=== PATIENT | female | born 1950 | race Caucasian/White ===

== ENCOUNTER → 2019-01-14 14:42 | Outpatient (CLI) | payer MEDICARE, OTHER, SELFPAY ==
--- NOTE | 2019-01-14 14:45 | BI_ITS ---
MAMMOGRAPHY - BILATERAL SCREENING REASON FOR EXAM: Female, 68 years old. Routine annual screening examination. PERTINENT HISTORY: Mother with breast cancer. TECHNIQUE: Digital bilateral breast sahil (3D mammographic acquisition) in the CC and MLO projections. 2-D mediolateral oblique (MLO) and craniocaudad (CC) views of both breasts were obtained. CAD: Full Field Digital Mammography with Computer Added Detection was performed. COMPARISON: Comparison is made with prior study dated November 19, 2017 and November 04, 2016. FINDINGS: Breast Composition: The breasts are almost entirely fatty. There are no dominant masses or suspicious calcifications. No other significant abnormalities are identified. There has been no significant change since the prior study. BI/SCREENING MAMM (CAD), BILAT IMPRESSION: Stable bilateral screening mammogram. Yearly follow-up mammogram recommended. (A) ASSESSMENT CATEGORY: BIRADS Category 1: Negative. A letter regarding these results will be sent to the patient by the facility within 30 days. Approximately 10% of breast cancers are not detected by mammography. A normal mammogram should not delay biopsy of a clinically suspicious abnormality. [id number] Electronically Signed: Timothy Nguyen MD at 8:47 EST , Service support ,
== END ==
PROVIDERS: Family Provider Family Medicine; PCP Family Medicine; Referring Provider Family Medicine; Visit Provider Family Medicine
DX: Z12.31 Encounter for screening mammogram for malignant neoplasm of breast (principal)
CPT/HCPCS: 77063; 77067

== ENCOUNTER → 2020-05-01 10:15 | Outpatient (CLI) | payer MEDICARE, OTHER, SELFPAY ==
[2020-05-01 12:40] LABS: Anion Gap 6 (5-15); BUN 18 mg/dL (7-18); BUN/Creat Ratio 17.5 RATIO (10-20); Calcium,Total 9.1 mg/dL (8.5-10.1); Chloride 107 mmol/L (98-107); Cholesterol 255 mg/dL (200); Creatinine, Serum 1.03 mg/dL (0.55-1.02); EST Glomerular Filtration Rate 56 mL/min (>60); Est Glom Filt Rate - Afr Amer 68 mL/min (>60); Glucose 90 mg/dL (74-106); High Density Lipoprotein 60 mg/dL; Potassium 3.8 mmol/L (3.5-5.1); Sodium Level 141 mmol/L (136-145); Triglycerides 140 mg/dL; Very Low Density Lipoprotein 28 mg/dL (5-40)
[2020-05-01 12:43] LABS: Vitamin D,25 Hydroxy 51.8 ng/mL
== END ==
PROVIDERS: PCP Family Medicine; Referring Provider Family Medicine; Visit Provider Family Medicine
DX: Z00.00 Encounter for general adult medical examination without abnormal findings (principal); I10 Essential (primary) hypertension; N95.9 Unspecified menopausal and perimenopausal disorder
CPT/HCPCS: 36415; 80048; 80061; 82306

== ENCOUNTER → 2020-05-29 13:05 | Outpatient (CLI) | payer MEDICARE, OTHER, SELFPAY ==
--- NOTE | 2020-05-29 13:08 | BI_ITS ---
MAMMOGRAPHY - BILATERAL SCREENING REASON FOR EXAM: Female, 69 years old. Routine annual screening examination. PERTINENT HISTORY: Mother with breast cancer. TECHNIQUE: Digital bilateral breast john (3D mammographic acquisition) in the CC and MLO projections. 2-D mediolateral oblique (MLO) and craniocaudad (CC) views of both breasts were obtained. CAD: Full Field Digital Mammography with Computer Added Detection was performed. COMPARISON: Comparison is made with prior study dated January 14, 2019 and November 19, 2017. FINDINGS: Breast Composition: The breasts are almost entirely fatty. There are no dominant masses or suspicious calcifications. Stable small benign appearing bilateral axillary lymph nodes. No other significant abnormalities are identified. There has been no significant change since the prior study. BI/SCREEN MAMM (CAD) W/JOHN BILAT IMPRESSION: Stable bilateral screening mammogram. Yearly follow-up mammogram recommended. (A) ASSESSMENT CATEGORY: BIRADS Category 2: Benign. A letter regarding these results will be sent to the patient by the facility within 30 days. Approximately 10% of breast cancers are not detected by mammography. A normal mammogram should not delay biopsy of a clinically suspicious abnormality. [id number] Electronically Signed: Timothy Nguyen, at 15:06 EDT , Service support ,
--- NOTE | 2020-05-29 13:30 | BD_ITS ---
STUDY: DUAL ENERGY X-RAY ABSORPTIOMETRY / DXA REASON FOR EXAM: Female, 69 years old. 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 COMPARISON: Comparison is made with prior examination November 11, 2017. FINDINGS: Lumbar Spine (L1-L4): g/cm2 (1.106) / T-score (-0.6) / Z-score (1.0) Findings are suggestive of normal bone density with a low fracture risk. Left Femur Total: g/cm2 (0.858) / T-score (-1.2) / Z-score (0.2) Left Femoral Neck: g/cm2 (0.766) / T-score (-2.0) / Z-score (-0.3) Right Femur Total: g/cm2 (0.857) / T-score (-1.2) / Z-score (0.2) Right Femoral Neck: g/cm2 (0.790) / T-score (-1.8) / Z-score (-0.1) The T-Scores on the most recent prior examination were: Lumbar Spine (L1-L4): There has been improvement of bone density since the previous examination. Left Femur Total: which represents an improvement of 1.5%. Right Femur Total: which represents a worsening of 2.7%. BD/DXA BONE DENS W/VERT FX ASMT IMPRESSION: The patient is considered osteopenic as outlined below according to World Neto Organization (WHO) criteria with a moderate fracture risk. There has been improvement of bone density since the previous examination. Reference Information: The T-score is the number of standard deviations above or below the standard which is normal for young adults at their peak bone mineral density. The World Health Organization (WHO) interprets the T-scores as follows: Above -1 Normal bone density Between -1 and -2.5 Osteopenia Equal to / or below -2.5 Osteoporosis As a practical clinical guideline, osteopenia may be graded as follows: Mild -1 through -1.5 Moderate -1.6 through -2.0 Severe -2.1 through -2.4 The Z-score is the number of standard deviations above or below age-matched controls. A Z-score of less than -1.5 would be considered abnormal. References: 1. NIH Osteoporosis and Related Bone Diseases http://www.osteo.org 2. International Society for Clinical Densitometry http://www.iscd.org 3. National Osteoporosis Foundation http://www.nof.org Electronically Signed: Timothy Nguyen, at 13:50 EDT , Service support ,
== END ==
PROVIDERS: PCP Family Medicine; Referring Provider Family Medicine; Visit Provider Family Medicine
DX: Z12.31 Encounter for screening mammogram for malignant neoplasm of breast (principal); N95.9 Unspecified menopausal and perimenopausal disorder
CPT/HCPCS: 77063; 77067; 77080; 77085

== ENCOUNTER → 2020-06-29 08:16 | Outpatient (CLI) | payer MEDICARE, OTHER, SELFPAY ==
[2020-06-29 10:12] LABS: AST(SGOT) 26 U/L (15-37); Alanine Aminotransfer ALT/SGPT 23 U/L (13-56); Cholesterol 114 mg/dL (200); High Density Lipoprotein 59 mg/dL; Triglycerides 72 mg/dL; Very Low Density Lipoprotein 14 mg/dL (5-40)
== END ==
PROVIDERS: PCP Family Medicine; Referring Provider Family Medicine; Visit Provider Family Medicine
DX: E78.5 Hyperlipidemia, unspecified (principal)
CPT/HCPCS: 36415; 80061; 84450; 84460

== ENCOUNTER → 2021-05-03 11:15 | Outpatient (CLI) | payer MEDICARE, OTHER, SELFPAY ==
[2021-05-03 13:08] LABS: AST(SGOT) 24 U/L (15-37); Alanine Aminotransfer ALT/SGPT 28 U/L (13-56); Cholesterol 135 mg/dL (200); High Density Lipoprotein 59 mg/dL; Thyroid Stim Hormone (TSH) 1.89 uIU/mL (0.358-3.74); Triglycerides 72 mg/dL; Very Low Density Lipoprotein 14 mg/dL (5-40)
== END ==
PROVIDERS: PCP Family Medicine; Referring Provider Family Medicine; Visit Provider Family Medicine
DX: E78.5 Hyperlipidemia, unspecified (principal)
CPT/HCPCS: 36415; 80061; 84443; 84450; 84460

== ENCOUNTER → 2021-06-04 08:29 | Outpatient (CLI) | payer MEDICARE, OTHER, SELFPAY ==
--- NOTE | 2021-06-04 08:32 | BI_ITS ---
MAMMOGRAPHY - BILATERAL SCREENING REASON FOR EXAM: Female, 70 years old. Routine annual screening examination. PERTINENT HISTORY: Mother with breast cancer. TECHNIQUE: Digital bilateral breast john (3D mammographic acquisition) in the CC and MLO projections. 2-D mediolateral oblique (MLO) and craniocaudad (CC) views of both breasts were obtained. CAD: Full Field Digital Mammography with Computer Added Detection was performed. COMPARISON: Comparison is made with prior study dated 05/29/2020 and 01/14/2019. FINDINGS: Breast Composition: The breasts are almost entirely fatty. There are no dominant masses or suspicious calcifications. Stable small benign-appearing bilateral axillary lymph nodes. No other significant abnormalities are identified. There has been no significant change since the prior study. BI/SCRN MAMM (CAD)W/JOHN BILAT IMPRESSION: Stable bilateral screening mammogram. Yearly follow-up mammogram recommended. (A) ASSESSMENT CATEGORY: BIRADS Category 2: Benign. A letter regarding these results will be sent to the patient by the facility within 30 days. Approximately 10% of breast cancers are not detected by mammography. A normal mammogram should not delay biopsy of a clinically suspicious abnormality. [id number] Electronically Signed: Timothy Nguyen MD at 9:57 EDT , Service support ,
== END ==
PROVIDERS: PCP Family Medicine; Referring Provider Family Medicine; Visit Provider Family Medicine
DX: Z12.31 Encounter for screening mammogram for malignant neoplasm of breast (principal); Z80.3 Family history of malignant neoplasm of breast
CPT/HCPCS: 77063; 77067

== ENCOUNTER → 2022-06-03 | Outpatient (CLI) | payer MEDICARE, OTHER, SELFPAY ==
[2022-06-03 16:05] LABS: AST(SGOT) 35 U/L (15-37); Alanine Aminotransfer ALT/SGPT 28 U/L (13-56); Cholesterol 134 mg/dL (200); High Density Lipoprotein 60 mg/dL; Triglycerides 74 mg/dL; Very Low Density Lipoprotein 15 mg/dL (5-40)
== END | disposition home or self-care (01) ==
LOC: MFPLAB 11:24
PROVIDERS: PCP Family Medicine; Referring Provider Family Medicine; Visit Provider Family Medicine
DX: E78.5 Hyperlipidemia, unspecified (principal)
CPT/HCPCS: 36415; 80061; 84450; 84460

== ENCOUNTER → 2022-06-06 | Outpatient (CLI) | payer MEDICARE, OTHER, SELFPAY ==
--- NOTE | 2022-06-06 10:56 | BI_ITS ---
MAMMOGRAPHY - BILATERAL SCREENING REASON FOR EXAM: Female, 71 years old. Routine annual screening examination. PERTINENT HISTORY: Mother with breast cancer. TECHNIQUE: Digital bilateral breast john (3D mammographic acquisition) in the CC and MLO projections. 2-D mediolateral oblique (MLO) and craniocaudad (CC) views of both breasts were obtained. CAD: Full Field Digital Mammography with Computer Added Detection was performed. COMPARISON: Comparison is made with prior study dated 06/04/2021 and 05/29/2020. FINDINGS: Breast Composition: The breasts are almost entirely fatty. There are no dominant masses or suspicious calcifications. Stable small benign-appearing bilateral axillary No other significant abnormalities are identified. There has been no significant change since the prior study. BI/SCRN MAMM (CAD)W/JOHN BILAT IMPRESSION: Stable bilateral screening mammogram. Yearly follow-up mammogram recommended. (A) ASSESSMENT CATEGORY: BIRADS Category 2: Benign. A letter regarding these results will be sent to the patient by the facility within 30 days. Approximately 10% of breast cancers are not detected by mammography. A normal mammogram should not delay biopsy of a clinically suspicious abnormality. [id number] Electronically Signed: Timothy Nguyen MD at 11:57 EDT ,
== END | disposition home or self-care (01) ==
PROVIDERS: PCP Family Medicine; Referring Provider Family Medicine; Visit Provider Family Medicine
DX: Z12.31 Encounter for screening mammogram for malignant neoplasm of breast (principal); Z80.3 Family history of malignant neoplasm of breast
CPT/HCPCS: 77063; 77067

== ENCOUNTER → 2023-06-11 | Outpatient (CLI) | payer MEDICARE, OTHER, SELFPAY ==
--- NOTE | 2023-06-11 08:00 | BI_ITS ---
MAMMOGRAPHY - BILATERAL SCREENING 3-D TOMOSYNTHESIS REASON FOR EXAM: Female, 72 years old. Routine screening PERTINENT HISTORY: Mother with breast cancer.. TECHNIQUE: 2-D mammograms and 3-D Tomosynthesis of the breast (s) were performed. CAD was performed. COMPARISON: 06/04/2021 FINDINGS: The breast composition is almost entirely fat. Scattered benign calcifications are seen. No dense spiculated masses or suspicious microcalcifications are identified. No architectural distortion is identified. There is no skin thickening or retraction. There has been no significant change since the prior study. BI/SCRN MAMM (CAD)W/JOHN BILAT IMPRESSION: No mammographic signs of malignancy. Routine yearly mammograms recommended. ASSESSMENT CATEGORY: BIRADS Category 1: Negative. A letter regarding these results will be sent to the patient by the facility within 30 days. FOLLOW UP RECOMMENDATION: Yearly follow up mammogram recommended. (A) Approximately 10% of breast cancers are not detected by mammography. A normal mammogram should not delay biopsy of a clinically suspicious abnormality. Electronically Signed: Cristofer Gonzalez MD at 9:15 EDT ,
== END | disposition home or self-care (01) ==
LOC: OPBI 07:58
PROVIDERS: PCP Family Medicine; Referring Provider Family Medicine; Visit Provider Family Medicine
DX: Z12.31 Encounter for screening mammogram for malignant neoplasm of breast (principal); Z80.3 Family history of malignant neoplasm of breast
CPT/HCPCS: 77063; 77067

== ENCOUNTER → 2024-06-24 | Outpatient (CLI) | payer MEDICARE, OTHER, SELFPAY ==
--- NOTE | 2024-06-24 07:29 | BI_ITS ---
MAMMOGRAPHY - BILATERAL SCREENING REASON FOR EXAM: Female, 73 years old. Routine annual screening examination. PERTINENT HISTORY: Mother with breast cancer. TECHNIQUE: Digital bilateral breast john (3D mammographic acquisition) in the CC and MLO projections. 2-D mediolateral oblique (MLO) and craniocaudad (CC) views of both breasts were obtained. CAD: Full Field Digital Mammography with Computer Added Detection was performed. COMPARISON: Comparison is made with prior study June 11, 2023 and June 06, 2022. FINDINGS: Breast Composition: The breasts are almost entirely fatty. There are no dominant masses or suspicious calcifications. No other significant abnormalities are identified. There has been no significant change since the prior study. BI/SCRN MAMM (CAD)W/JOHN BILAT IMPRESSION: Stable bilateral screening mammogram. Yearly follow-up mammogram recommended. (A) ASSESSMENT CATEGORY: BIRADS Category 1: Negative. A letter regarding these results will be sent to the patient by the facility within 30 days. Approximately 10% of breast cancers are not detected by mammography. A normal mammogram should not delay biopsy of a clinically suspicious abnormality. [id number] Electronically Signed: Timothy Nguyen MD at 9:03 EDT ,
== END | disposition home or self-care (01) ==
LOC: OPBI 07:27
PROVIDERS: PCP Family Medicine; Referring Provider Family Medicine; Visit Provider Family Medicine
DX: Z12.31 Encounter for screening mammogram for malignant neoplasm of breast (principal); Z80.3 Family history of malignant neoplasm of breast
CPT/HCPCS: 77063; 77067

== ENCOUNTER → 2025-06-26 | Outpatient (CLI) | payer MEDICARE, OTHER, SELFPAY ==
--- OUTSIDE RECORDS SUMMARY | 2025-06-26 07:22 | XMS RPT_ITS | CCD ---
Author Organization [facility] Care Team Providers Care Sign Board Erector Name Role Phone Marcela Blas MD Unavailable [phone] Mariluz Coronado Primary Care Provider MARILUZ CORONADO Primary Care Unavailable MARILUZ CORONADO Primary Care Unavailable Mariluz Coronado Referring Unavailable Mariluz Coronado Attending Unavailable Mariluz Coronado Primary Care Unavailable Allergies Allergy Classification Reported Allergen(s) Allergy Type Date of Onset Reaction(s) Facility (2 sources) Erythromycin; Translations: [ERYTHROMYCIN] Drug Allergy 02-09-2007 [facility] Work Phone: Medications Current Medications Medication Drug Class(es) Dates Sig (Normalized) Sig (Original) cephalexin 500 mg oral capsule (1 source) Cephalosporin Antibacterial Start: 04-26-2023 End: 05-01-2023 take 1 capsule by mouth three times daily cephALEXin (KEFLEX) 500 mg capsule Take 1 capsule by mouth three times daily for 5 days. 15 capsule 0 04/26/2023 05/01/2023 Active Comment on above: Take 1 capsule by [facility] three times daily for 5 days. triamcinolone acetonide 1 mg/ml topical cream (1 source) Corticosteroid Start: 04-26-2023 End: 05-01-2023 triamcinolone acetonide (KENALOG) 0.1 % cream Apply 1 application to affected area twice daily for 5 days. Apply sparingly to area for rash/itching. 45 g 0 04/26/2023 05/01/2023 Active Comment on above: Apply 1 application to affected area twice daily for 5 days. Apply sparingly to area for rash/itching. Completed/Discontinued Medications Medication Drug Class(es) Dates Sig (Normalized) Sig (Original) calcium (1 source) Phosphate Binder, Calcium Start: 07-09-2018 CALCIUM 600 + D TABS 1 tablet twice daily CALCIUM CARB-CHOLECALCIFEROL TABS [id number] Zena Acevedo FACULTY RESEARCH ASSISTANT MULTIPLE VITAMINS-MINERALS (1 source) Start: 10-27-2017 MULTIVITAMIN ADULTS TABS 1 tablet daily MULTIPLE VITAMINS-MINERALS [id number] Zena Huitronro FACULTY RESEARCH ASSISTANT MULTIPLE VITAMINS-MINERALS (1 source) Start: 10-27-2017 OCUVITE EXTRA TABS 1 tablet daily MULTIPLE VITAMINS-MINERALS [id number] Zena Acevedo FACULTY RESEARCH ASSISTANT Problems Active Problems Problem Classification Problem Date Documented Da te Episodic/Chronic Melanomas of skin (1 source) Malignant melanoma of skin of cheek; Translations: [Malignant melanoma of other parts of face] Onset: 11-09-2017 11-09-2017 Chronic Other ear and sense organ disorders (1 source) Otorrhea of left ear; Translations: [Otorrhea, left ear] Episodic Other screening for suspected conditions (not mental disorders or infectious disease) (1 source) Encounter for screening mammogram for malignant neoplasm of breast; Translations: [Encounter for screening mammogram for malignant neoplasm of breast] Onset: 07-22-2024 Episodic Past or Other Problems Problem Classification Problem Date Documented Da te Episodic/Chronic Allergic reactions (1 source) Radiation-induced dermatosis; Translations: [Other skin changes due to chronic exposure to nonionizing radiation] Onset: 02-10-2007 02-10-2007 Episodic Other and unspecified benign neoplasm (1 source) Benign neoplasm of skin of upper limb; Translations: [Other benign neoplasm of skin of unspecified upper limb, including shoulder] Onset: 02-10-2007 02-10-2007 Episodic Other and unspecified benign neoplasm (1 source) Benign tumor of head and neck; Translations: [Other benign neoplasm of skin of scalp and neck] Onset: 02-10-2007 02-10-2007 Episodic Other and unspecified benign neoplasm (1 source) Benign neoplasm of skin of trunk; Translations: [Other benign neoplasm of skin of trunk] Onset: 02-10-2007 02-10-2007 Episodic Other injuries and conditions due to external causes (1 source) Open wound; Translations: [Other injury of unspecified body region, initial encounter] Onset: 05-11-2007 05-11-2007 Episodic Other skin disorders (1 source) Actinic keratosis; Translations: [Actinic keratosis] Onset: 02-10-2007 02-10-2007 Episodic Other skin disorders (1 source) Disorder of skin pigmentation; Translations: [Disorder of pigmentation, unspecified] Onset: 02-10-2007 02-10-2007 Episodic Other skin disorders (1 source) Disorder of pigmentation; Translations: [Disorder of pigmentation, unspecified] Onset: 03-23-2007 03-23-2007 Episodic Other skin disorders (1 source) Scar conditions and fibrosis of skin; Translations: [Scar conditions and fibrosis of skin] Onset: 09-10-2007 09-10-2007 Episodic Unclassified (1 source) Problem Results Test Name Value Interpretation Reference Range Facility SCRN MAMM (CAD)W/JOHN Thompson n 06-24-2024 SCRN MAMM (CAD)W/JOHN OROZCO [facility] Imaging Services [address] [place] [id number] SCRN MAMM (CAD)W/JOHN OROZCO MR#: [id number] Acct: [id number] Name: MARINE SANCHEZ AMAYA Rep #: [id number] : 1950 F 73 From: Timothy nuñez MD PCP: Dr. Mariluz Coronado MD Status: [facility] Study: SCRN MAMM (CAD)W/JOHN OROZCO Date of Exam: 01/16 Exam# [id number] Ordering Dr: Mariluz Coronado MD [id number] MAMMOGRAPHY - BILATERAL SCREENING REASON FOR EXAM: Female, 73 years old. Routine annual screening examination. PERTINENT HISTORY: Mother with breast cancer. TECHNIQUE: Digital bilateral breast john (3D mammographic acquisition) in the CC and MLO projections. 2-D mediolateral oblique (MLO) and craniocaudad (CC) views of both breasts were obtained. CAD: Full Field Digital Mammography with Computer Added Detection was performed. COMPARISON: Comparison is made with prior study June 11, 2023 and June 06, 2022. FINDINGS: Breast Composition: The breasts are almost entirely fatty. There are no dominant masses or suspicious calcifications. No other significant abnormalities are identified. There has been no significant change since the prior study. BI/SCRN MAMM (CAD)W/JOHN BILAT IMPRESSION: Stable bilateral screening mammogram. Yearly follow-up mammogram recommended. (A) ASSESSMENT CATEGORY: BIRADS Category 1: Negative. A letter regarding these results will be sent to the patient by the facility within 30 days. Approximately 10% of breast cancers are not detected by mammography. A normal mammogram should not delay biopsy of a clinically suspicious abnormality. [id number] Electronically Signed: Timothy Nguyen MD at 9:03 EDT , CC: Dr. Mariluz Coronado MD Technical Mgr: Signed [facility] 04-30-2023 [facility] Telephone (UCTR) LAURAMARINE ([id number]) 1950 F Date Time Provider Department 04/30/23 ZEE CARRENO [facility] During your visit today, we recorded the following information about you: Zee Carreno APRN.[facility] 04/30/2023 12:00 PM Signed Please let Marine know that her wound culture did not reveal bacterial growth. She can continue the ATB and ointment if symptoms are improving. Follow up with primary care doctor. Robyn Lemus LPN 04/30/2023 12:57 PM Signed Phone call placed brief message contact a nurse to review results. Robyn Sood MA 05/02/2023 10:23 AM Signed Letter sent to listed address after 3 attempts to reach patient by telephone with no success. MARILY Heck LPN 05/06/2023 1:12 PM Signed Patient returned call and notified of results. Allergies As of Date: 04/30/2023 Noted Allergy Reaction EMYCIN (ERYTHROMYCIN) 02/09/2007 Date Reviewed: 04/26/2023 Reviewed by: Patricia Altamirano APRN.ADMINISTRATIVE SERVICES SPECIALIST - Fully Assessed Reason for Visit: Results [95] Problem List As Of Date 04/30/2023 Noted Resolved ACTINIC KERATOSIS [L57.0] 02/10/2007 SOLAR LENGINES///DYSCHROMIA OTHER [L81.9] 02/10/2007 BENIGN FIDELIA SKIN ARM [D23.60] 02/10/2007 BENIGN FIDELIA SCALP/SKIN NECK [D23.4] 02/10/2007 BENIGN FIDELIA SKIN TRUNK [D23.5] 02/10/2007 CHR SOLAR SKIN DAMAGE NOS [L57.8] 02/10/2007 ABNORMAL PIGMENTATION///DYSCHR OMIA UNSPECIFIED *03/23/2007 OPEN WOUND SITE NOS [T14.8XXA] 05/11/2007 SCAR AND FIBROSIS OF SKIN [L90.5] 09/10/2007 Letter Text Encounter Status:Closed by CLIFFORD SOOD on 05/02/23 Normal [facility] Bacteria Wnd Culton 04-26-20 Bacteria identified Cx Nom (Wound) CULTURE, WOUND: No growth GRAM STAIN: No organisms seen No Polymorphonuclear Leukocytes Normal [facility] Comment on above: Performed By: #### [phone] #### [facility] CLIA [id number] [address] [place] [address] [place] CNOVon 04-26-2023 CNOV Office Visit (UCWSTR ) MARINE SANCHEZ ([id number]) 1950 F Date Time Provider Department 04/26/23 9:00 AM PATRICIA ALTAMIRANO [facility] During your visit today, we recorded the following information about you: Temperature Pulse Respiration Blood pressure 97.8 degrees 72/minute 16/minute 118/80 Weight 67.1 kg Patricia APRN. AdarshADMINISTRATIVE SERVICES SPECIALIST 04/26/2023 9:31 AM Signed Subjective HPI Nontoxic-appearing female presents urgent care chief complaint left ear swelling. Patient symptoms the last few days. Associated symptoms itching redness swelling and drainage. States ear slightly painful. Most prominent symptom today is itching. No OTC medications. States ear was more swollen yesterday and swelling has slightly went down. No known injuries. Does not know if she was bit by a bug. Has been camping. Denies any fever body aches chills productive cough chest pain shortness of breath pleuritic pain hemoptysis nausea vomiting abdominal pain change in bowel or bladder habits. Past medical history prescription medication use and allergies reviewed. .Patient presents with: Ear Problem: Left ear swollen, red, painful, itchy, drainage History reviewed. No pertinent past medical history. PAST SURGICAL HISTORY Procedure Laterality Date PAST SURGICAL HISTORY OF 2003 hyster ALLERGIES Emycin [Erythromycin] MEDICATIONS No prescriptions on file. FAMILY HISTORY Problem Relation Age of Onset Cancer Mother breast Cancer Father melanoma Social History Tobacco Use Smoking status: Never Smokeless tobacco: Never BP 118/80 Pulse 72 Temp 36.6 ?C (97.8 ?F) Resp 16 Wt 67.1 kg (148 lb) SpO2 98% Review of Systems Constitutional: Negative for chills, fever and malaise/fatigue. HENT: Positive for ear discharge. Negative for congestion, ear pain, sinus pain and sore throat. Eyes: Negative for blurred vision, pain, discharge and redness. Respiratory: Negative for cough, hemoptysis, sputum production, shortness of breath, wheezing and stridor. Cardiovascular: Negative for chest pain. Gastrointestinal: Negative for abdominal pain, diarrhea, nausea and vomiting. Musculoskeletal: Negative for myalgias. Skin: Positive for itching. Negative for rash. Neurological: Negative for dizziness and headaches. Objective Physical Exam Constitutional: General: She is not in acute distress. Appearance: She is not diaphoretic. HENT: Head: Normocephalic. Ears: Comments: Edema erythema noted with some honey crusted drainage. No mastoid tenderness. No erythema edema noted to auditory canal. TMs pearly aj and intact bilaterally. No pre or posterior clear nodes noted. No cervical nodes noted. Mouth/Throat: Mouth: Mucous membranes are moist. Pharynx: Oropharynx is clear. No oropharyngeal exudate or posterior oropharyngeal erythema. Eyes: Conjunctiva/sclera: Conjunctivae normal. Pupils: Pupils are equal, round, and reactive to light. Cardiovascular: Rate and Rhythm: Normal rate and regular rhythm. Heart sounds: Normal heart sounds. Pulmonary: Effort: Pulmonary effort is normal. No tachypnea, accessory muscle usage or respiratory distress. Breath sounds: Normal breath sounds. No stridor. No wheezing, rhonchi or rales. Musculoskeletal: Cervical back: Normal range of motion and neck supple. No rigidity or tenderness. Lymphadenopathy: Cervical: No cervical adenopathy. Skin: General: Skin is warm and dry. Neurological: Mental Status: She is alert and oriented to person, place, and time. ASSESSMENT/PLAN: 1. Ear drainage, left - ICD9: 388.60, ICD10: H92.12 - ABSCESS AND WOUND CULTURE WITH GRAM STAIN Dermatitis versus bacterial infection. Low suspicion for perichondritis at this point. Will use triamcinolone cream as instructed. Do not use on face or and auditory canal. Will be placed on Keflex. Red flags prompt reevaluation discussed. Follow-up with PCP tomorrow for reevaluation. Patient was educated on supportive therapies. Patient will follow up with primary care provider as needed. Patient was instructed to immediately proceed to emergency room for any new, worsening, or symptoms lasting longer than anticipated. The patient's clinical presentation is otherwise unremarkable at this time. Based on exam and clinical finding, the patient is stable for discharge. Plan of care was discussed with patient. Patient verbalizes understanding and agrees to plan of care. This note was generated using [employer] software. It may contain errors in wording, punctuation, or spelling. Patricia Altamirano APRN.ADMINISTRATIVE SERVICES SPECIALIST Referring Provider: SELF [200] Allergies As of Date: 04/26/2023 Noted Allergy Reaction EMYCIN (ERYTHROMYCIN) 02/09/2007 Date Reviewed: 04/26/2023 Reviewed by: Patricia Altamirano APRN.CNP - Fully Assessed Reason for Visit: Ear Problem [38] Cmt: Left ear swollen, red, painful, itchy, (more content not included)... Normal [facility] CNOVon 04-12-2023 CNOV Office Visit (UCWSTR ) MARINE SANCHEZ ([id number]) 1950 F Date Time Provider Department 04/12/23 12:45 PM ADEOLA JO WSJEFFERSON During your visit today, we recorded the following information about you: Temperature Pulse Respiration Blood pressure 97.3 degrees 76/minute 16/minute 122/72 Weight 69.4 kg Adeola Jo APRN.CNP 04/12/2023 2:26 PM Signed CC: Patient presents with: Insect Bite: tick on top of head x 04/08, still there HPI Marine Sanchez is a 72 year old female who presents today for above. First noticed a bump on the top of her head on 04/08. She had a friend look at it yesterday who thought it was likely a tick. Patient put clear nail tuvaluan on it and it is still there today. [place] and has dogs. Denies rash, malaise, fatigue, joint pain, fever, chills. REVIEW OF SYSTEMS See HPI No past medical history on file. PAST SURGICAL HISTORY Procedure Laterality Date PAST SURGICAL HISTORY OF 2003 hyster ALLERGIES Emycin [Erythromycin] MEDICATIONS No prescriptions on file. FAMILY HISTORY Problem Relation Age of Onset Cancer Mother breast Cancer Father melanoma Social History Tobacco Use Smoking status: Never PHYSICAL EXAM BP 122/72 Pulse 76 Temp 36.3 ?C (97.3 ?F) Resp 16 Wt 69.4 kg (153 lb) SpO2 100% General Appearance: well appearing, in no acute distress, alert Skin- tick removed easily from scalp/top of head. No rashes, swelling, redness, or drainage. ASSESSMENT/PLAN: 1. Tick bite of scalp, initial encounter - ICD9: 910.4, E906.4, ICD10: S00.06XA, W57.XXXA Uncertain how long the tick was attached. Will treat with prophylactic Doxycycline. Given handout on Lyme disease and symptoms to watch out for Prescription instructions reviewed with patient as applicable. Potential red flag symptoms discussed with the patient. Reviewed appropriate action plan to take if red flag symptoms occur. Patient agreeable to treatment plan. Adeola Jo, ALVINO.ADMINISTRATIVE SERVICES SPECIALIST Allergies As of Date: 04/12/2023 Noted Allergy Reaction EMYCIN (ERYTHROMYCIN) 02/09/2007 Date Reviewed: 04/12/2023 Reviewed by: Alejandra Courtney - Fully Assessed Reason for Visit: Insect Bite [929] Cmt: tick on top of head x 04/08, still there Primary Visit Diagnosis:Tick bite of scalp, initial encounter [S00.06XA, W57.XXXA] Order(s):doxycycline (VIBRA-TABS) 100 mg tabletTake 2 tablets by mouth one time only for 1 dose.Disp: 2 tabletRfl: 0 Prescriptions as of 04/12/2023 - doxycycline (VIBRA-TABS) 100 mg tablet Take 2 tablets by mouth one time only for 1 dose. Problem List As Of Date 04/12/2023 Noted Resolved ACTINIC KERATOSIS [L57.0] 02/10/2007 SOLAR LENGINES///DYSCHROMIA OTHER [L81.9] 02/10/2007 BENIGN FIDELIA SKIN ARM [D23.60] 02/10/2007 BENIGN FIDELIA SCALP/SKIN NECK [D23.4] 02/10/2007 BENIGN FIDELIA SKIN TRUNK [D23.5] 02/10/2007 CHR SOLAR SKIN DAMAGE NOS [L57.8] 02/10/2007 ABNORMAL PIGMENTATION///DYSCHR OMIA UNSPECIFIED *03/23/2007 OPEN WOUND SITE NOS [T14.8XXA] 05/11/2007 SCAR AND FIBROSIS OF SKIN [L90.5] 09/10/2007 Prescriptions ordered this encounter Disp Refills Start End DOXYCYCLINE HYCLATE 100 MG TABLET 2 ta* 0 04/12/2023 04/12/2023 Route: ORAL Sig: Take 2 tablets by mouth one time only for 1 dose. Encounter Status:Closed by OLDER, ADEOLA on 04/12/23 Normal [facility] Basophil percentageon 2021 Cholesterol [Mass/Vol] 134 mg/dL <200 [facility] Work Phone: Comment on above: <200 mg/dL Desirable 200-240 mg/dL Borderline >240 mg/dL High Risk Triglyceride [Mass/Vol] 74 mg/dL <199 [facility] Work Phone: Comment on above: The drugs N-Acetylcy steine and Metamizole may falsely depress this assay.Serum Triglycerides Reference Interval Normal <150 mg/dL Borderline high 150 - 199 mg/dL High 200 - 499 mg/dL Very High > or = 500 mg/dL Laboratory - Chemistry and C hemistry - challengeon 06-03-2022 ALT [Catalytic activity/Vol] 28 U/L 13-56 [facility] Work Phone: Serum or plasma cholesterol in HDL measurement (mass/volume)on 06-03-2022 Cholesterol in HDL [Mass/Vol] 60 mg/dL >40 [facility] Work Phone: Comment on above: The drugs N-Acetylcy steine and Metamizole may falsely depress this assay. Reference Range HDL <40 mg/dL Low HDL Cholesterol HDL >or= 60 mg/dL High HDL Cholesterol Serum or plasma cholesterol in VLDL measurement (mass/volume)on 06-03-2022 Cholesterol in VLDL [Mass/Vol] 15 mg/dL 5-40 [facility] Work Phone: Serum or plasma low density lipoprotein (LDL) cholesterol measurement (mass/volume)on 06-03-2022 Cholesterol in LDL [Mass/Vol] 59 mg/dL 0-130 [facility] Work Phone: Thin prep Papanicolaou smear with manual screeningon 06-03-2022 Thin prep Papanicolaou smear with manual screening 35 U/L 15-37 [facility] Work Phone: XR FINGER 4TH DIGIT 3 VIEWS RIGHTon 04-29-2021 XR FINGER 4TH DIGIT 3 VIEWS RIGHT ORIGINAL XR FINGER 4TH DIGIT 3 VIEWS RIGHT CLINICAL STATEMENT: pain. COMPARISON: None FINDINGS: No acute fracture or dislocation is identified. The joint spaces are maintained. Soft tissue swelling of the distal 4th finger. There is no radiopaque foreign body. IMPRESSION: No acute fracture or dislocation. I have personally reviewed the images of this examination and agree with the resident's findings and interpretation. Interpreted By: Eliecer Beckman DO Preliminary Report By: Willie Madrigal MD Electronically Signed By: Eliecer Beckman DO Dictated Date: 04/28/2021 9:55:29 PM Prelim Date: 04/28/2021 9:56:34 PM Sign Date: 04/28/2021 10:09:42 PM Ordering Provider:Eliezer Baeza [facility] (MD) Clinical Summary: HMSPatient IDon 07-12-2018 POP Invalid Interpretation Code [facility] Work [facility]: Office Visit: Postop - subse quent visit, Rm: 1on 07-12-2018 NEGATED: Highlighted rowProtein mass conc Done Invalid Interpretation Code [facility] Work Phone: Vital Signs Date Time Vital Sign Value Performing Clinician Facility 04-26-2023 09:01-0400 Body temperature 97.81 [degF] Patricia Altamirano APRN.ADMINISTRATIVE SERVICES SPECIALIST Work Phone: [facility] 04-26-2023 09:01-0400 Body weight 67.13 kg Patricia Altamirano APRN.ADMINISTRATIVE SERVICES SPECIALIST Work Phone: [facility] 04-26-2023 09:01-0400 Diastolic blood pressure 80 mm[Hg] Patricia Altamirano BYPRODUCTS OPERATOR.ADMINISTRATIVE SERVICES SPECIALIST Work Phone: [facility] 04-26-2023 09:01-0400 Heart rate 72 /min Patricia Altamirano BYPRODUCTS OPERATOR.ADMINISTRATIVE SERVICES SPECIALIST Work Phone: [facility] 04-26-2023 09:01-0400 Respiratory rate 16 /min Patricia Altamirano APRN.ADMINISTRATIVE SERVICES SPECIALIST Work Phone: [facility] 04-26-2023 09:01-0400 SaO2% (BldA) [Mass fraction] 98 % Patricia Altamirano BYPRODUCTS OPERATOR.ADMINISTRATIVE SERVICES SPECIALIST Work Phone: [facility] 04-26-2023 09:01-0400 Systolic blood pressure 118 mm[Hg] Patricia Bellkelly BYPRODUCTS OPERATOR.ADMINISTRATIVE SERVICES SPECIALIST Work Phone: [facility] NEGATED: Highlighted [id number] 10:13-0400 BMI (Body Mass Index) 30.32 kg/m2 Emilia Serrilli FACULTY RESEARCH ASSISTANT [facility] Work Phone: NEGATED: Highlighted [id number] 10:13-0400 BP Diastolic 88 mm[Hg] Emilia Serrilli FACULTY RESEARCH ASSISTANT [facility] Work Phone: NEGATED: Highlighted [id number] 10:13-0400 BP Diastolic 0 mm[Hg] Emilia Serrilli FACULTY RESEARCH ASSISTANT [facility] Work Phone: NEGATED: Highlighted [id number] 10:13-0400 BP Systolic 153 mm[Hg] Emilia Serrilli FACULTY RESEARCH ASSISTANT [facility] Work Phone: NEGATED: Highlighted [id number] 10:13-0400 BP Systolic 0 mm[Hg] Emilia Serrilli FACULTY RESEARCH ASSISTANT [facility] Work Phone: NEGATED: Highlighted [id number] 10:13-0400 Height 162.56 cm Emilia Serrilli FACULTY RESEARCH ASSISTANT [facility] Work Phone: NEGATED: Highlighted [id number] 10:13-0400 Height 163 cm Emilia Serrilli FACULTY RESEARCH ASSISTANT [facility] Work Phone: NEGATED: Highlighted [id number] 10:13-0400 Pulse (Heart Rate) 65 /min Emilia Serrilli FACULTY RESEARCH ASSISTANT [facility] Work Phone: NEGATED: Highlighted [id number] 10:13-0400 Weight 79.83 kg Emilia Serrilli FACULTY RESEARCH ASSISTANT [facility] Work Phone: NEGATED: Highlighted [id number] 10:13-0400 Weight 80 kg Emilia Riley MIGUEL [facility] Work Phone: Encounters Encounter Date Encounter Type Care Provider Facility Start: 06-24-2024 End: 06-24-2024 ambulatory Mariluz Avitiaiff Facility:[facility] Start: 04-26-2023 End: 04-26-2023 [facility] Start: 04-26-2023 End: 04-26-2023 Office outpatient visit 25 minutes Patricia Altamirano APRN.ERICKA Work Phone: [facility] Comment on above: Ear drainage, left ( Primary Dx) Start: 04-12-2023 End: 04-12-2023 [facility] Start: 06-06-2022 Patient encounter procedure [facility]Outpatient [facility] Start: 06-03-2022 End: 06-03-2022 Patient encounter [facility] Start: 07-12-2018 End: 07-12-2018 Patient encounter procedure Marcela Blas MD Work Phone: [facility] Work Phone: Procedures Date Procedure Procedure Detail Performing Clinician Start: 06-06-2022 Screening mammography Start: 07-12-2018 End: 07-12-2018 BMI documented as above normal parameters - follow-up documented Marcela Blas MD Work Phone: Start: 07-12-2018 End: 07-12-2018 Current medications documented Marcela Blas MD Work Phone: Start: 07-12-2018 End: 07-12-2018 Pain assessment not documented - reason not given A Mo Blas MD Work Phone: Start: 07-12-2018 End: 07-12-2018 Tobacco non-user Marcela Junior Work Phone: Plan of Treatment Date Care Activity Detail Author Start: 11-23-2022 ADVANCE DIRECTIVE DISCUSSION ADVANCE DIRECTIVE DISCUSSION [facility] Start: 11-23-2022 DEPRESSION ASSESSMENT DEPRESSION ASS ESSMENT [facility] Start: 12-30-2021 COVID-19 VACCINE (4 - Booster for Moderna series) COVID-19 VACCINE (4 - Booster for Moderna series) [facility] Start: 07-12-2018 End: 07-12-2018 Appointment Appointment [facility] Work Phone: Start: 2015 BONE DENSITY BONE DENSITY [facility] Start: 2015 PNEUMOCOCCAL: 65+ (1 - PCV) PNEUMOCOCCAL: 65+ (1 - PCV) [facility] Start: 2000 SHINGRIX VACCINE (1 of 2) SHINGRIX VACCINE (1 of 2) [facility] Start: 1995 COLOGUARD (FIT-DNA) COLOGUARD (FIT-D NA) [facility] Start: 1995 Colonoscopy COLONOSCOPY [facility] Start: 1995 COLORECTAL CANCER SCREENING COLORECTAL CANCER SCREENING [facility] Start: [address] COLONOGRAPHY [facility] Start: 1995 DIABETES SCREEN DIABETES SCREEN [facility] Start: 1995 FECAL OCCULT BLOOD FECAL OCCULT BLOO D [facility] Start: 1995 LIPID SCREEN LIPID SCREEN [facility] Start: 1995 SIGMOIDOSCOPY SIGMOIDOSCOPY [facility] Start: 1990 Mammography MAMMOGRAM [facility] Start: 1969 Urine microalbumin profile DTAP,TDAP,TD (1 - Tdap) [facility] Start: 1968 HEPATITIS C SCREENING HEPATITIS C [facility] Bacteria identified in Wound by Culture ABSCESS AND WOUND CULTURE WITH GRAM STAIN Microbiology Routine Ear drainage, left Ordered: 04/26/2023 [facility] Work Phone: Comment on above: Ordered: 04/26/2023 Patient Education \cps-sql1\CPS_ PtEducati on\htn.pdf [facility] Work Phone: Immunizations Immunization Date Immunization Notes Care Provider Brittany harvey No information available. Emilia Riley LPN [facility] Work Phone: Payers Date Payer Category Payer Self-pay [id number] 2015 Private Health Insurance [id number] 2015 Private Health Insurance HUMANA HUMANA MEDICARE SUPPLEMENT [id number] 2015-Present [phone] [address] [address] [place] [address] Indemnity [id number] 2015 Medicare [id number] 2015 Medicare MEDICARE MEDICAR E A AND B [id number] 2015-Present [phone] [address] [address] [place] [address] Medicare [id number] Unknown [id number] Social History Date Type Detail Facility Start: 07-12-2018 End: 07-12-2018 Assertion Unknown if ever smoked [facility] Work Phone: Start: 1950 Sex Assigned At Female [facility] Work Phone: Start: 04-26-2023 [facility] Start: 04-26-2023 Tobacco use and exposure Smokeless tobacco non-user [facility] Start: 04-26-2023 Alcohol intake Not Asked Luiza junior [facility] Start: 1950 Sex Assigned At Not on file [facility] Progress note 04-26-2023 Note Date & Type Note Facility 04-26-2023 Note HNO ID: [id number] Author: Patricia Altamirano APRN.ADMINISTRATIVE SERVICES SPECIALIST Service: ? Author Type: Nurse Practitioner Type: Progress Notes Filed: 04/26/2023 9:31 AM Note Text: Subjective HPI Nontoxic-appearing female presents urgent care chief complaint left ear swelling. Patient symptoms the last few days. Associated symptoms itching redness swelling and drainage. States ear slightly painful. Most prominent symptom today is itching. No OTC medications. States ear was more swollen yesterday and swelling has slightly went down. No known injuries. Does not know if she was bit by a bug. Has been camping. Denies any fever body aches chills productive cough chest pain shortness of breath pleuritic pain hemoptysis nausea vomiting abdominal pain change in bowel or bladder habits. Past medical history prescription medication use and allergies reviewed. .Patient presents with: Ear Problem: Left ear swollen, red, painful, itchy, drainage History reviewed. No pertinent past medical history. PAST SURGICAL HISTORY Procedure Laterality Date PAST SURGICAL HISTORY OF 2003 hyster ALLERGIES Emycin [Erythromycin] MEDICATIONS No prescriptions on file. FAMILY HISTORY Problem Relation Age of Onset Cancer Mother breast Cancer Father melanoma Social History Tobacco Use Smoking status: Never Smokeless tobacco: Never BP 118/80 Pulse 72 Temp 36.6 ?C (97.8 ?F) Resp 16 Wt 67.1 kg (148 lb) SpO2 98% Review of Systems Constitutional: Negative for chills, fever and malaise/fatigue. HENT: Positive for ear discharge. Negative for congestion, ear pain, sinus pain and sore throat. Eyes: Negative for blurred vision, pain, discharge and redness. Respiratory: Negative for cough, hemoptysis, sputum production, shortness of breath, wheezing and stridor. Cardiovascular: Negative for chest pain. Gastrointestinal: Negative for abdominal pain, diarrhea, nausea and vomiting. Musculoskeletal: Negative for myalgias. Skin: Positive for itching. Negative for rash. Neurological: Negative for dizziness and headaches. Objective Physical Exam Constitutional: General: She is not in acute distress. Appearance: She is not diaphoretic. HENT: Head: Normocephalic. Ears: Comments: Edema erythema noted with some honey crusted drainage. No mastoid tenderness. No erythema edema noted to auditory canal. TMs pearly aj and intact bilaterally. No pre or posterior clear nodes noted. No cervical nodes noted. Mouth/Throat: Mouth: Mucous membranes are moist. Pharynx: Oropharynx is clear. No oropharyngeal exudate or posterior oropharyngeal erythema. Eyes: Conjunctiva/sclera: Conjunctivae normal. Pupils: Pupils are equal, round, and reactive to light. Cardiovascular: Rate and Rhythm: Normal rate and regular rhythm. Heart sounds: Normal heart sounds. Pulmonary: Effort: Pulmonary effort is normal. No tachypnea, accessory muscle usage or respiratory distress. Breath sounds: Normal breath sounds. No stridor. No wheezing, rhonchi or rales. Musculoskeletal: Cervical back: Normal range of motion and neck supple. No rigidity or tenderness. Lymphadenopathy: Cervical: No cervical adenopathy. Skin: General: Skin is warm and dry. Neurological: Mental Status: She is alert and oriented to person, place, and time. ASSESSMENT/PLAN: 1. Ear drainage, left - ICD9: 388.60, ICD10: H92.12 - ABSCESS AND WOUND CULTURE WITH GRAM STAIN Dermatitis versus bacterial infection. Low suspicion for perichondritis at this point. Will use triamcinolone cream as instructed. Do not use on face or and auditory canal. Will be placed on Keflex. Red flags prompt reevaluation discussed. Follow-up with PCP tomorrow for reevaluation. Patient was educated on supportive therapies. Patient will follow up with primary care provider as needed. Patient was instructed to immediately proceed to emergency room for any new, worsening, or symptoms lasting longer than anticipated. The patient's clinical presentation is otherwise unremarkable at this time. Based on exam and clinical finding, the patient is stable for discharge. Plan of care was discussed with patient. Patient verbalizes understanding and agrees to plan of care. This note was generated using [employer] software. It may contain errors in wording, punctuation, or spelling. Patricia Altamirano APRN.ERICKA [facility] History of Present illness Narrative 04-26-2023 Patricia Altamirano APRN.ERICKA - 04/26/2023 9:04 AM EDT Note Date & Type Note Facility 04-26-2023 History of Presen t illness Narrative Images from the original note were not included. Subjective HPI Nontoxic-appearing female presents urgent care chief complaint left ear swelling. Patient symptoms the last few days. Associated symptoms itching redness swelling and drainage. States ear slightly painful. Most prominent symptom today is itching. No OTC medications. States ear was more swollen yesterday and swelling has slightly went down. No known injuries. Does not know if she was bit by a bug. Has been camping. Denies any fever body aches chills productive cough chest pain shortness of breath pleuritic pain hemoptysis nausea vomiting abdominal pain change in bowel or bladder habits. Past medical history prescription medication use and allergies reviewed. .Patient presents with: Ear Problem: Left ear swollen, red, painful, itchy, drainage History reviewed. No pertinent past medical history. PAST SURGICAL HISTORY Procedure Laterality Date PAST SURGICAL HISTORY OF 2003 hyster ALLERGIES Emycin [Erythromycin] MEDICATIONS No prescriptions on file. FAMILY HISTORY Problem Relation Age of Onset Cancer Mother breast Cancer Father melanoma Social History Tobacco Use Smoking status: Never Smokeless tobacco: Never BP 118/80 Pulse 72 Temp 36.6 C (97.8 F) Resp 16 Wt 67.1 kg (148 lb) SpO2 98% Review of Systems Constitutional: Negative for chills, fever and malaise/fatigue. HENT: Positive for ear discharge. Negative for congestion, ear pain, sinus pain and sore throat. Eyes: Negative for blurred vision, pain, discharge and redness. Respiratory: Negative for cough, hemoptysis, sputum production, shortness of breath, wheezing and stridor. Cardiovascular: Negative for chest pain. Gastrointestinal: Negative for abdominal pain, diarrhea, nausea and vomiting. Musculoskeletal: Negative for myalgias. Skin: Positive for itching. Negative for rash. Neurological: Negative for dizziness and headaches. Objective Physical Exam Constitutional: General: She is not in acute distress. Appearance: She is not diaphoretic. HENT: Head: Normocephalic. Ears: Comments: Edema erythema noted with some honey crusted drainage. No mastoid tenderness. No erythema edema noted to auditory canal. TMs pearly aj and intact bilaterally. No pre or posterior clear nodes noted. No cervical nodes noted. Mouth/Throat: Mouth: Mucous membranes are moist. Pharynx: Oropharynx is clear. No oropharyngeal exudate or posterior oropharyngeal erythema. Eyes: Conjunctiva/sclera: Conjunctivae normal. Pupils: Pupils are equal, round, and reactive to light. Cardiovascular: Rate and Rhythm: Normal rate and regular rhythm. Heart sounds: Normal heart sounds. Pulmonary: Effort: Pulmonary effort is normal. No tachypnea, accessory muscle usage or respiratory distress. Breath sounds: Normal breath sounds. No stridor. No wheezing, rhonchi or rales. Musculoskeletal: Cervical back: Normal range of motion and neck supple. No rigidity or tenderness. Lymphadenopathy: Cervical: No cervical adenopathy. Skin: General: Skin is warm and dry. Neurological: Mental Status: She is alert and oriented to person, place, and time. ASSESSMENT/PLAN: 1. Ear drainage, left - ICD9: 388.60, ICD10: H92.12 - ABSCESS AND WOUND CULTURE WITH GRAM STAIN Dermatitis versus bacterial infection. Low suspicion for perichondritis at this point. Will use triamcinolone cream as instructed. Do not use on face or and auditory canal. Will be placed on Keflex. Red flags prompt reevaluation discussed. Follow-up with PCP tomorrow for reevaluation. Patient was educated on supportive therapies. Patient will follow up with primary care provider as needed. Patient was instructed to immediately proceed to emergency room for any new, worsening, or symptoms lasting longer than anticipated. The patient's clinical presentation is otherwise unremarkable at this time. Based on exam and clinical finding, the patient is stable for discharge. Plan of care was discussed with patient. Patient verbalizes understanding and agrees to plan of care. This note was generated using [employer] software. It may contain errors in wording, punctuation, or spelling. Patricia Altamirano APRN.ERICKA documented in this encounter [facility] Progress note 04-12-2023 Note Date & Type Note Facility 04-12-2023 Note HNO ID: [id number] Author: Adeola Jo APRN.CNP Service: ? Author Type: Nurse Practitioner Type: Progress Notes Filed: 04/12/2023 2:26 PM Note Text: CC: Patient presents with: Insect Bite: tick on top of head x 04/08, still there HPI Marine Sanchez is a 72 year old female who presents today for above. First noticed a bump on the top of her head on 04/08. She had a friend look at it yesterday who thought it was likely a tick. Patient put clear nail tuvaluan on it and it is still there today. [place] and has dogs. Denies rash, malaise, fatigue, joint pain, fever, chills. REVIEW OF SYSTEMS See HPI No past medical history on file. PAST SURGICAL HISTORY Procedure Laterality Date PAST SURGICAL HISTORY OF 2003 hyster ALLERGIES Emycin [Erythromycin] MEDICATIONS No prescriptions on file. FAMILY HISTORY Problem Relation Age of Onset Cancer Mother breast Cancer Father melanoma Social History Tobacco Use Smoking status: Never PHYSICAL EXAM BP 122/72 Pulse 76 Temp 36.3 ?C (97.3 ?F) Resp 16 Wt 69.4 kg (153 lb) SpO2 100% General Appearance: well appearing, in no acute distress, alert Skin- tick removed easily from scalp/top of head. No rashes, swelling, redness, or drainage. ASSESSMENT/PLAN: 1. Tick bite of scalp, initial encounter - ICD9: 910.4, E906.4, ICD10: S00.06XA, W57.XXXA Uncertain how long the tick was attached. Will treat with prophylactic Doxycycline. Given handout on Lyme disease and symptoms to watch out for Prescription instructions reviewed with patient as applicable. Potential red flag symptoms discussed with the patient. Reviewed appropriate action plan to take if red flag symptoms occur. Patient agreeable to treatment plan. Adeola Jo APRN.ADMINISTRATIVE SERVICES SPECIALIST [facility] Evaluation note Note Date & Type Note Facility Evaluation note No assessment information availa [facility] Work Phone: Evaluation note Note Date & Type Note Facility Evaluation note Diagnosis Ear drainage, left- Primary documented in this encounter [facility] Instructions Instruction Description Start Date CompletedPlease follow-up wi th Primary Care Physician or [facility] for treatment or adjustment of medication regarding elevated blood pressure.Patient advised to follow-up with Primary Care Physician for BMI management. Advance Directives There may be information available, but it has not been provided by the sender. No Advanced Directives Records FoundNo Advanced Directives Records FoundNo Advanced Directives Records Found Assessments There may be information available, but it has not been provided by the sender. Review of System There may be information available, but it has not been provided by the sender. Family History There may be information available, but it has not been provided by the sender.No Family History Records FoundNo Family History Records FoundNo Family History Records Found Summary Purpose Chief Complaint and Reason for Visit Chief Complaint SCREENING Additional Source Comments INFORMATION SOURCE (unrecogn ized section and content) DATE CREATED AUTHOR 04/28/2021 [facility] ([place]) DATE CREATED AUTHOR AUTHOR'S ORGANIZ ATION 05/07/2023 [facility] DATE CREATED AUTHOR AUTHOR'S ORGANIZ ATION 07/23/2024 [facility] Goals (unrecognized section and content) Goals may be documented in a n alternate section Source Comments (unrecognize d section and content) In the event this informatio n is protected by the Federal Confidentiality of Alcohol and Drug Abuse Patient Records regulations: The Federal rules restrict any use of the information to criminally investigate or prosecute any alcohol or drug abuse patient.[facility] Reason for Visit (unrecogniz ed section and content) Reason Comments Ear Problem Left ear swollen, re d, painful, itchy, drainage Care Teams (unrecognized sec tion and content) Sign Board Erector Relationship Specialty Start Date End Date Mariluz Coronado [address] [place] [address] PCP - General Family Medicine 04/12/23 FOR RECORDS PERTAINING TO PATIENTS WHO ARE OR HAVE BEEN ENROLLED IN A CHEMICAL DEPENDENCY/SUBSTANCEABUSE PROGRAM, SOME INFORMATION MAY BE OMITTED. This clinical summary was aggregated from multiple sources. Caution should be exercised in using it in the provision of clinical care. This summary normalizes information from multiple sources, and as a consequence, information in this document may materially change the coding, format and clinical context of patient data. In addition, data may be omitted in some cases. CLINICAL DECISIONS SHOULD BE BASED ON THE PRIMARY CLINICAL RECORDS. [employer] provides no warranty or guarantee of the accuracy or completeness of information in this document.
[2025-06-26 11:34] LABS: Anion Gap 13 (5-15); BUN 15 mg/dL (4-19); BUN/Creat Ratio 16.6 RATIO (10-20); Calcium,Total 9.7 mg/dL (7.6-11.0); Carbon Dioxide 23.7 mmol/L (21.0-32.0); Chloride 104 mmol/L (98-108); Cholesterol 230 mg/dL (<=200); Glucose 77 mg/dL (70-99); Low Density Lipoprotein Calc. 146 mg/dL; Potassium 3.9 mmol/L (3.3-5.1); Triglycerides 72 mg/dL; Very Low Density Lipoprotein 14 mg/dL (5-40); cholesterol:hdl ratio screen 3.30
== END | disposition home or self-care (01) ==
LOC: MTLAB 07:17
PROVIDERS: PCP Family Medicine; Referring Provider Family Medicine; Visit Provider Family Medicine
DX: Z00.00 Encounter for general adult medical examination without abnormal findings (principal); E78.5 Hyperlipidemia, unspecified
CPT/HCPCS: 36415; 80048; 80061

== ENCOUNTER → 2025-07-13 | Outpatient (CLI) | payer MEDICARE, OTHER, SELFPAY ==
--- NOTE | 2025-07-13 07:29 | BI_ITS ---
EXAM: SCRN MAMM (CAD)W/JOHN BILAT DATE: 07/13/2025 CLINICAL HISTORY: F, Age 74 y/o , SCREENING History of mother with breast cancer. TECHNIQUE: SCRN MAMM (CAD)W/JOHN BILAT COMPARISON: Prior exam(s) dated June 24, 2024.. FINDINGS: TISSUE DENSITY: The breasts are almost entirely fatty. Bilateral Breast Mammographic Findings: No significant masses, calcifications or other abnormalities are identified. Stable small benign-appearing bilateral axillary lymph nodes. No suspicious masses, areas of developing architectural distortion, or suspicious calcifications. There has been no significant interval change. BI/SCRN MAMM (CAD)W/JOHN BILAT IMPRESSION: Stable examination. OVERALL FINAL ASSESSMENT BI-RADS 2: BENIGN RECOMMENDATION: Routine annual follow-up in 1 Year A letter with findings and recommendations will be mailed to the patient. Reading Location: [id number]
--- OUTSIDE RECORDS SUMMARY | 2025-07-13 07:30 | XMS RPT_ITS | CCD ---
Author Organization [facility] Care Team Providers Care Carton Forming Machine Operator Name Role Phone Roopa FINE, Marcela Hassan Unavailable Mariluz Coronado Primary Care Provider MARILUZ CORONADO Primary Care Unavailable MARILUZ CORONADO Primary Care Unavailable Joshua FINE, Dr. Lopez Primary Care Provider [phone] Joshua FINE, Dr. Lopez Attending Provider [phone] Joshua FINE, Dr. Lopez Referring Provider John Lewis Attending Unavailable John Lewis Referring Unavailable John Lewis Primary Care Unavailable John Lewis Referring Unavailable John Lewis Primary Care Unavailable John Lewis Attending Unavailable Allergies Allergy Classification Reported Allergen(s) Allergy Type Date of Onset Reaction(s) Facility (2 sources) Erythromycin; Translations: [ERYTHROMYCIN] Drug Allergy 02-09-2007 [facility] Work Phone: Medications Current Medications Medication Drug Class(es) Dates Sig (Normalized) Sig (Original) cephalexin 500 mg oral capsule (1 source) Cephalosporin Antibacterial Start: 04-26-2023 End: 05-01-2023 take 1 capsule by mouth three times daily cephALEXin (KEFLEX) 500 mg capsule Take 1 capsule by mouth three times daily for 5 days. 15 capsule 0 04/26/2023 05/01/2023 Active Comment on above: [facility]. [...] 1 tablet twice daily CALCIUM CARB-CHOLECALCIFEROL TABS [id number] Zena Corsaro CHEMICAL APPLICATOR MULTIPLE VITAMINS-MINERALS (1 source) Start: 10-27-2017 MULTIVITAMIN ADULTS TABS 1 tablet daily MULTIPLE VITAMINS-MINERALS [id number] Zena Corsaro CHEMICAL APPLICATOR MULTIPLE VITAMINS-MINERALS (1 source) Start: 10-27-2017 OCUVITE EXTRA TABS 1 tablet daily MULTIPLE VITAMINS-MINERALS [id number] Zena Corsaro CHEMICAL APPLICATOR Problems Active Problems Problem Classification Problem Date [...] mammogram for malignant neoplasm of breast] Onset: 07-11-2025 Episodic Past or Other Problems Problem Classification [...] Test Name Value Interpretation Reference Range Facility Anion gap in Serum or Plasma Ordered By: John Lewis on 06-26-2025 Anion gap [Moles/Vol] 13 mmol/L - [facility] BUN/creatinine ratioOrdered By: John Lewsi on 06-26-2025 Urea nitrogen/Creatinine [Mass ratio] 16.6 mg/mg 09-11 [facility] Basic Metabolic Profile (BMP )on 06-26-2025 BUN/CRE 16.6 RATIO Normal 09-11 [facility] Comment on above: Performed By: #### L 500.4100, L500.2500 #### [facility] [address] [place], [address] Calcium [Mass/Vol] 9.7 mg/dL Normal 7.6-11.0 [facility] Comment on above: Performed By: #### L 500.4100, L500.2500 #### [facility] [address] [place], [address] Chloride [Moles/Vol] 104 mmol/L Normal 98-108 [facility] Comment on above: Performed By: #### L 500.4100, L500.2500 #### [facility] [address] [place], [address] CO2 [Moles/Vol] 23.7 mmol/L Normal 21.0-32.0 [facility] Comment on above: Performed By: #### L 500.4100, L500.2500 #### [facility] [address] [place], [address] Creatinine [Mass/Vol] 0.88 mg/dL Normal 0.70-1.20 [facility] Comment on above: Performed By: #### L 500.4100, L500.2500 #### [facility] [address] [place], [address] GAP 13 Normal 5-15 [facility] Comment on above: Performed By: #### L 500.4100, L500.2500 #### [facility] [address] [place], [address] GFR/1.73 sq M.predicted among non-blacks MDRD (S/P/Bld) [Vol rate/Area] 69 mL/min/{1.73_m2} Normal >60 [facility] Comment on above: Result Comment: mL/m in/1.73m2 CKD-EPI Creatinine Equation (2020) Performed By: #### L 500.4100, L500.2500 #### [facility] [address] [place], [address] Glucose [Mass/Vol] 77 mg/dL Normal 70-99 [facility] Comment on above: Performed By: #### L 500.4100, L500.2500 #### [facility] [address] [place], [address] Potassium [Moles/Vol] 3.9 mmol/L Normal 3.3-5.1 [facility] Comment on above: Performed By: #### L 500.4100, L500.2500 #### [facility] [address] [place], [address] Sodium [Moles/Vol] 141 mmol/L Normal 133-145 [facility] Comment on above: Performed By: #### L 500.4100, L500.2500 #### [facility] [address] [place], [address] Urea nitrogen [Mass/Vol] 15 mg/dL Normal 4-19 [facility] Comment on above: Performed By: #### L 500.4100, L500.2500 #### [facility] [address] [place], [address] Calculated very low density lipoprotein (VLDL) cholesterol measurementOrdered By: John Lewis on 06-26-2025 Calculated very low density lipoprotein (VLDL) cholesterol measurement 14 mg/dL 5-40 [facility] Carbon dioxide, total [Moles /volume] in Central venous bloodOrdered By: John Lewis on 06-26-2025 CO2 [Moles/Vol] 23.7 mmol/L 21.0-32.0 [facility] Chloride assayOrdered By: Jeffrey Lewis on 06-26-2025 Chloride [Moles/Vol] 104 mmol/L 98-108 [facility] Glomerular filtration rate ( GFR) estimation/1.73 sq m using serum, plasma, or whole bOrdered By: John Lewis on 06-26-2025 GFR/1.73 sq M.predicted among non-blacks MDRD (S/P/Bld) [Vol rate/Area] 69 mL/min/{1.73_m2} >60 [facility] Comment on above: mL/min/1.73m2 CKD-EP I Creatinine Equation (2020) LDL calc ser/plasOrdered By: John Lewis on 06-26-2025 Cholesterol in LDL [Mass/Vol] 146 mg/dL [facility] Comment on above: Oobprmuhhf=851-713 m g/dL & Higher Ahsv=270 mg/dL or greaterFriedwald Equation for LDL-C Lipid Profileon 06-26-2025 CHOL:HDL 3.30 Normal [facility] Comment on above: Performed By: #### L 500.4100, L500.2500 #### [facility] [place] [facility] [address] [place], [address] Cholesterol [Mass/Vol] 230 mg/dL High <=200 [facility] Comment on above: Result Comment: Chol esterol level, Desirable <200 mg/dL Borderline high cholesterol 200-239 mg/dL High cholesterol >=240 mg/dL Recommendations of the NCEP Adult Treatment Panel for the following risk-cutoff thresholds for the [place] population. Performed By: #### L 500.4100, L500.2500 #### [facility] [address] [place], [address] Cholesterol in HDL [Mass/Vol] 70 mg/dL Normal [facility] Comment on above: Result Comment: Brenda onal Cholesterol Education Program (NCEP) guidelines: <40 mg/dL: Low HDL-cholesterol (major risk factor for CHD) >= 60 mg/dL: High HDL-cholesterol (negative risk factor for CHD) HDL-cholesterol is affected by a number of factors, e.g. smoking, exercise, hormones, sex and age. Performed By: #### L 500.4100, L500.2500 #### [facility] [address] [place], [address] Cholesterol in LDL [Mass/Vol] 146 mg/dL Normal [facility] Comment on above: Result Comment: Bord raqoco=682-303 mg/dL Higher Dbcr=457 mg/dL or greater Friedwald Equation for LDL-C Performed By: #### L 500.4100, L500.2500 #### [facility] [address] [place], [address] Cholesterol in VLDL [Mass/Vol] 14 mg/dL Normal 5-40 [facility] Comment on above: Performed By: #### L 500.4100, L500.2500 #### [facility] [address] [place], [address] Triglyceride [Mass/Vol] 72 mg/dL Normal [facility] Comment on above: Result Comment: The drugs N-Acetylcysteine and Metamizole may falsely depress this assay. Normal range: <150 mg/dL Borderline High: 150-199 mg/dL High: 200-499 mg/dL Very High: >500 mg/dL Performed By: #### L 500.4100, L500.2500 #### [facility] [address] [place], [address] Potassium measurement (mass/ volume)Ordered By: John Lewis on 06-26-2025 Potassium (Unsp spec) [Mass/Vol] 3.9 mmol/L 3.3-5.1 [facility] Screening total cholesterol/ high density lipoprotein (HDL) cholesterol ratioOrdered By: John Lewis on 06-26-2025 Cholesterol.total/Chol esterol in HDL [Mass ratio] 3.30 {ratio} [facility] Serum creatinine measurement (mass/volume)Ordered By: John Lewis on 06-26-2025 Creatinine [Mass/Vol] 0.88 mg/dL 0.70-1.20 [facility] Serum glucose measurement (m ass/volume)Ordered By: John Lewis on 06-26-2025 Glucose [Mass/Vol] 77 mg/dL 70-99 [facility] Serum or plasma calcium alesia urement (mass/volume)Ordered By: John Lewis on 06-26-2025 Calcium [Mass/Vol] 9.7 mg/dL 7.6-11.0 [facility] Serum or plasma cholesterol in HDL measurement (mass/volume)Ordered By: John Lewis on 06-26-2025 Cholesterol in HDL [Mass/Vol] 70 mg/dL >40 [facility] Comment on above: National Cholesterol Education Program (NCEP) guidelines:<40 mg/dL: Low HDL-cholesterol (major risk factor for CHD)>= 60 mg/dL: High HDL-cholesterol (negative risk factor for CHD)HDL-cholesterol is affected by a number of factors, e.g. smoking, exercise, hormones, sex and age. Serum or plasma cholesterol measurement (mass/volume)Ordered By: John Lewis on 06-26-2025 Cholesterol [Mass/Vol] 230 mg/dL High <201 [facility] Comment on above: Cholesterol level, D esirable <200 mg/dLBorderline high cholesterol 200-239 mg/dLHigh cholesterol >=240 mg/dLRecommendations of the NCEP Adult Treatment Panel for the following risk-cutoff thresholds for the [place] population. Serum or plasma urea nitroge n measurement (mass/volume)Ordered By: John Lewis on 06-26-2025 Urea nitrogen [Mass/Vol] 15 mg/dL 4-19 [facility] Sodium levelOrdered By: John Lewis on 06-26-2025 Sodium [Moles/Vol] 141 mmol/L 133-145 [facility] Triglycerides measurementOrd ered By: John Lewis on 06-26-2025 Triglyceride [Mass/Vol] 72 mg/dL <199 [facility] Comment on above: The drugs N-Acetylcy steine and Metamizole may falsely depress this assay. Normal range: <150 mg/dLBorderline High: 150-199 mg/dLHigh: 200-499 mg/dLVery High: >500 mg/dL CNPF[facility] MARINE SANCHEZ ([id number]) 1950 F Date Time Provider Department 04/30/23 ZEE CARRENO [facility] During your visit today, we recorded the following information about you: Zee Carreno APRN.CNP 04/30/2023 12:00 PM Signed Please let Marine [...] Date Reviewed: 04/26/2023 Reviewed by: Patricia Altamirano APRN.SMOKING PIPE MOUNTER - Fully Assessed Reason for Visit: Results [95] Problem List As Of Date 04/30/2023 Noted Resolved ACTINIC KERATOSIS [L57.0] 02/10/2007 SOLAR LENGINES///DYSCHROMI A OTHER [L81.9] 02/10/2007 BENIGN FIDELIA SKIN ARM [D23.60] 02/10/2007 BENIGN FIDELIA SCALP/SKIN NECK [D23.4] 02/10/2007 BENIGN FIDELIA SKIN TRUNK [D23.5] 02/10/2007 CHR SOLAR SKIN DAMAGE NOS [L57.8] 02/10/2007 ABNORMAL PIGMENTATION///DYSCH ROMIA UNSPECIFIED *03/23/2007 OPEN WOUND SITE NOS [T14.8XXA] 05/11/2007 SCAR AND FIBROSIS OF SKIN [L90.5] 09/10/2007 Letter Text Encounter Status:Closed by CLIFFORD SOOD on 05/02/23 Normal [facility] Bacteria Wnd Culton 04-26-20 Bacteria identified Cx Nom (Wound) CULTURE, WOUND: No growth GRAM STAIN: No organisms seen No Polymorphonuclear Leukocytes Normal [facility] Comment on above: Performed By: #### 6 [id number] #### [facility] CLIA [id number] [address] [place] [address] [place] CNOVon 04-26-2023 CNOV Office Visit (UCWSTR) MARINE SANCHEZ ([id number]) 1950 F Date Time Provider Department 04/26/23 9:00 AM PATRICIA ALTAMIRANO During your visit today, we recorded the following information about you: Temperature Pulse Respiration Blood pressure 97.8 degrees 72/minute 16/minute 118/80 Weight 67.1 kg Patricia CECIL Altamirano 04/26/2023 9:31 AM Signed Subjective HPI Nontoxic-appearing [...] of care. This note was generated using [employer] software. It may contain errors in wording, punctuation, or spelling. Patricia Altamirano APRN.SMOKING PIPE MOUNTER Referring Provider: SELF [200] Allergies As of Date: 04/26/2023 Noted Allergy Reaction EMYCIN (ERYTHROMYCIN) 02/09/2007 Date Reviewed: 04/26/2023 Reviewed by: Patricia Altamirano APRN.SMOKING PIPE MOUNTER - Fully Assessed Reason for Visit: Ear Problem [38] Cmt: Left ear swollen, red, painful, itchy, (more content not included)... Normal [facility] CNOVon 04-12-2023 CNOV Office Visit (UCWSTR) MARINE SANCHEZ ([id number]) 1950 F Date Time Provider Department 04/12/23 12:45 PM OLDERADEOLA WS During your visit today, we recorded the following information about you: Temperature Pulse Respiration Blood pressure 97.3 degrees 76/minute 16/minute 122/72 Weight 69.4 kg Adeola Older, COUNSELOR/ART THERAPIST.SMOKING PIPE MOUNTER 04/12/2023 2:26 PM Signed CC: Patient presents [...] likely a tick. Patient put clear nail spanish on it and it is still there [...] Patient agreeable to treatment plan. Adeola Jo APRN.SMOKING PIPE MOUNTER Allergies As of Date: 04/12/2023 Noted Allergy [...] Noted Resolved ACTINIC KERATOSIS [L57.0] 02/10/2007 SOLAR LENGINES///DYSCHROMI A OTHER [L81.9] 02/10/2007 BENIGN FIDELIA SKIN ARM [D23.60] 02/10/2007 BENIGN FIDELIA SCALP/SKIN NECK [D23.4] 02/10/2007 BENIGN FIDELIA SKIN TRUNK [D23.5] 02/10/2007 CHR SOLAR SKIN DAMAGE NOS [L57.8] 02/10/2007 ABNORMAL PIGMENTATION///DYSCH ROMIA UNSPECIFIED *03/23/2007 OPEN WOUND SITE NOS [T14.8XXA] 05/11/2007 SCAR AND FIBROSIS OF SKIN [L90.5] 09/10/2007 Prescriptions ordered this encounter Disp Refills Start End DOXYCYCLINE HYCLATE 100 MG TABLET 2 ta* 0 04/12/2023 04/12/2023 Route: ORAL Sig: Take 2 tablets by mouth one time only for 1 dose. Encounter Status:Closed by ADEOLA JO on 04/12/23 [facility] Cholesterol [Mass/Vol] 134 mg/dL <200 [facility] Work Phone: Comment on above: <200 mg/dL Desirable 200-240 mg/dL Borderline >240 mg/dL High Risk Triglyceride [Mass/Vol] 74 mg/dL <199 [facility] Work Phone: Comment on above: The drugs N-Acetylcy steine and Metamizole may falsely depress this assay.Serum Triglycerides Reference Interval Normal <150 mg/dL Borderline high 150 - 199 mg/dL High 200 - 499 mg/dL Very High > or = 500 mg/dL Laboratory - Chemistry and C hemistry - challengeon 06-03-2022 ALT [Catalytic activity/Vol] 28 U/L 13-56 [facility] Work Phone: Serum or plasma cholesterol in HDL measurement (mass/volume)on 06-03-2022 Cholesterol in HDL [Mass/Vol] 60 mg/dL >40 [facility] Work Phone: Comment on above: The drugs N-Acetylcy steine and Metamizole may falsely depress this assay. Reference Range HDL <40 mg/dL Low HDL Cholesterol HDL >or= 60 mg/dL High HDL Cholesterol Serum or plasma cholesterol in VLDL measurement (mass/volume)on 06-03-2022 Cholesterol in VLDL [Mass/Vol] 15 mg/dL 5-40 [facility] Work Phone: Serum or plasma low density lipoprotein (LDL) cholesterol measurement (mass/volume)on 06-03-2022 Cholesterol in LDL [Mass/Vol] 59 mg/dL 0-130 [facility] Work Phone: Thin prep Papanicolaou smear with manual screeningon 06-03-2022 Thin prep Papanicolaou smear with manual screening 35 U/L 15-37 [facility] Work Phone: XR FINGER 4TH DIGIT [...] Sign Date: 04/28/2021 10:09:42 PM Ordering Provider:Eliezer Mahan [facility] ([place]) Clinical Summary: HMSPatient IDon 07-12-2018 POP Invalid Interpretation Code [facility] Work Phone: Office Visit: Postop - subse quent visit, Rm: 1on 07-12-2018 NEGATED: Highlighted rowProtein mass conc Done Invalid Interpretation Code [facility] Work Phone: Vital Signs Date Time Vital Sign Value Performing Clinician Facility 04-26-2023 09:01-0400 Body temperature 97.81 [degF] Patricia Altamirano COUNSELOR/ART THERAPIST.SMOKING PIPE MOUNTER Work Phone: [facility] 04-26-2023 09:01-0400 Body weight 67.13 kg Patricia Altamirano COUNSELOR/ART THERAPIST.SMOKING PIPE MOUNTER Work Phone: [facility] 04-26-2023 09:01-0400 Diastolic blood pressure 80 mm[Hg] Patricia Altamirano COUNSELOR/ART THERAPIST.SMOKING PIPE MOUNTER Work Phone: [facility] 04-26-2023 09:01-0400 Heart rate 72 /min Patricia Altamirano COUNSELOR/ART THERAPIST.SMOKING PIPE MOUNTER Work Phone: [facility] 04-26-2023 09:01-0400 Respiratory rate 16 /min Patricia Altamirano COUNSELOR/ART THERAPIST.SMOKING PIPE MOUNTER Work Phone: [facility] 04-26-2023 09:01-0400 SaO2% (BldA) [Mass fraction] 98 % Patricia Altamirano COUNSELOR/ART THERAPIST.SMOKING PIPE MOUNTER Work Phone: [facility] 04-26-2023 09:01-0400 Systolic blood pressure 118 mm[Hg] Patricia Altamirano COUNSELOR/ART THERAPIST.SMOKING PIPE MOUNTER Work Phone: [facility] NEGATED: Highlighted [id number] 10:13-0400 BMI (Body Mass Index) 30.32 kg/m2 Emilia Serrilli CHEMICAL APPLICATOR [facility] Work Phone: NEGATED: Highlighted [id number] 10:13-0400 BP Diastolic 88 mm[Hg] Emilia Serrilli CHEMICAL APPLICATOR [facility] Work Phone: NEGATED: Highlighted [id number] 10:13-0400 BP Diastolic 0 mm[Hg] Emilia Serrilli CHEMICAL APPLICATOR [facility] Work Phone: NEGATED: Highlighted [id number] 10:13-0400 BP Systolic 153 mm[Hg] Emilia Serrilli CHEMICAL APPLICATOR [facility] Work Phone: NEGATED: Highlighted [id number] 10:13-0400 BP Systolic 0 mm[Hg] Emilia Serrilli CHEMICAL APPLICATOR [facility] Work Phone: NEGATED: Highlighted [id number] 10:13-0400 Height 162.56 cm Emilia Serrilli CHEMICAL APPLICATOR [facility] Work Phone: NEGATED: Highlighted [id number] 10:13-0400 Height 163 cm Emilia Serrilli CHEMICAL APPLICATOR [facility] Work Phone: NEGATED: Highlighted [id number] 10:13-0400 Pulse (Heart Rate) 65 /min Emilia Serrilli CHEMICAL APPLICATOR [facility] Work Phone: NEGATED: Highlighted [id number] 10:13-0400 Weight 79.83 kg Emilia Serrilli CHEMICAL APPLICATOR [facility] Work Phone: NEGATED: Highlighted [id number] 10:13-0400 Weight 80 kg Emilia Serrilli CHEMICAL APPLICATOR [facility] Work Phone: Encounters Encounter Date Encounter Type Care Provider Facility Start: 07-13-2025 [facility] Facility:[facility] Start: 07-04-2025 Encounter for genera l adult medical examination without abnormal findings John Lewis [facility] Start: 06-26-2025 End: 06-26-[address] John Lewis MD Work Phone: [facility] Start: 06-26-2025 End: 06-26-[address] John Lewis MD [facility] Work Phone: Start: 06-26-2025 End: 06-26-2025 ambulatory John Lewis Facility:[facility] Start: 04-26-2023 End: 04-26-2023 ambulatory MARILUZ CORONADO Facility:[facility] Start: 04-26-2023 End: 04-26-2023 Office outpatient visit 25 minutes Patricia Altamirano APRN.CNP Work Phone: [facility] Comment on above: Ear drainage, left ( Primary Dx) Start: 04-12-2023 End: 04-12-2023 ambulatory MARILUZ CORONADO Facility:[facility] Start: 06-06-2022 Patient encounter procedure [facility] Start: 06-03-2022 End: 06-03-2022 [facility] Start: 07-12-2018 End: 07-12-2018 Patient encounter procedure Marcela Blas MD Work Phone: [facility] Work Phone: Procedures Date Procedure Procedure Detail Performing Clinician Start: 06-06-2022 Screening mammography Start: 07-12-2018 End: 07-12-2018 BMI documented as above normal parameters - follow-up documented Marcela Blas MD Work Phone: Start: 07-12-2018 End: 07-12-2018 Current medications documented Marcela Blas MD Work Phone: Start: 07-12-2018 End: 07-12-2018 Pain assessment not documented - reason not given Marcela Blas MD Work Phone: Start: 07-12-2018 End: 07-12-2018 Tobacco non-user Marcela Junior Work Phone: Plan of Treatment Date Care Activity Detail Author Start: 11-23-2022 ADVANCE DIRECTIVE DISCUSSION ADVANCE DIRECTIVE DISCUSSION [facility] Start: 11-23-2022 DEPRESSION ASSESSMENT DEPRESSION ASS ESSMENT [facility] Start: 12-30-2021 COVID-19 VACCINE (4 - Booster for Moderna series) COVID-19 VACCINE (4 - Booster for Moderna series) [facility] Start: 07-12-2018 End: 07-12-2018 Appointment Appointment [facility] Work Phone: Start: 2015 BONE DENSITY BONE DENSITY [facility] Start: 2015 PNEUMOCOCCAL: 65+ (1 - PCV) PNEUMOCOCCAL: 65+ (1 - PCV) [facility] Start: 2000 SHINGRIX VACCINE (1 of 2) SHINGRIX VACCINE (1 of 2) [facility] Start: 1995 COLOGUARD (FIT-DNA) COLOGUARD (FIT-D NA) [facility] Start: 1995 Colonoscopy COLONOSCOPY [facility] Start: 1995 COLORECTAL CANCER SCREENING COLORECTAL CANCER SCREENING [facility] Start: [address] COLONOGRAPHY [facility] Start: 1995 DIABETES SCREEN DIABETES SCREEN [facility] Start: 1995 FECAL OCCULT BLOOD FECAL OCCULT BLOO D [facility] Start: 1995 LIPID SCREEN LIPID SCREEN [facility] Start: 1995 SIGMOIDOSCOPY SIGMOIDOSCOPY [facility] Start: 1990 Mammography MAMMOGRAM [facility] Start: 1969 Urine microalbumin profile DTAP,TDAP,TD (1 - Tdap) [facility] Start: 1968 HEPATITIS C SCREENING HEPATITIS C [facility] Bacteria identified in Wound by Culture ABSCESS AND WOUND CULTURE WITH GRAM STAIN Microbiology Routine Ear drainage, left Ordered: 04/26/2023 [facility] Work Phone: Comment on above: Ordered: 04/26/2023 Patient Education \cps-[email or web address]\CPS_ PtEducati on\htn.pdf [facility] Work Phone: Immunizations Immunization Date Immunization Notes Care Provider Fa cility No information available. Emilia Riley MIGUEL [facility] Work Phone: Payers Date Payer Category Payer Self-pay [id number] 2015 Private Health Insurance [id number] 2015 Private Health Insurance HUMANA HUMANA MEDICARE SUPPLEMENT [id number] 2015-Present [phone] [address] [address] [place] [address] Indemnity [id number] 2015 Medicare [id number] 2015 Medicare MEDICARE MEDICAR E A AND B [id number] 2015-Present [phone] [address] [address] [place] [address] Medicare [id number] Unknown [id number] Unknown [id number] Social History Date Type Detail Facility Start: 07-12-2018 End: 07-12-2018 Assertion Unknown if ever smoked [facility] Work Phone: Start: 1950 Sex Assigned At Female [facility] Start: 05-01-2020 End: 04-26-2023 Tobacco smoking status NHIS Never smoked tobacco [facility] Start: 04-26-2023 Tobacco use and exposure Smokeless tobacco non-user [facility] Start: 04-26-2023 Alcohol intake Not Asked Luiza junior [facility] Start: 1950 Sex Assigned At Not on file [facility] Progress note 04-26-2023 Note Date & Type Note Facility 04-26-2023 Note HNO ID: [id number] Author: Patricia Altamirano APRN.SMOKING PIPE MOUNTER Service: ? Author Type: Nurse Practitioner Type: [...] of care. This note was generated using [employer] software. It may contain errors in wording, punctuation, or spelling. Patricia Altamirano APRN.ERICKA [facility] History of Present illness Narrative 04-26-2023 [...] of care. This note was generated using [employer] software. It may contain errors in wording, punctuation, or spelling. Patricia Altamirano APRN.ERICKA documented in this encounter [facility] Progress note 04-12-2023 Note Date & Type Note Facility 04-12-2023 Note HNO ID: [id number] Author: Adeola Jo APRN.CNP Service: ? Author [...] likely a tick. Patient put clear nail spanish on it and it is still there [...] Patient agreeable to treatment plan. Adeola Jo APRN.SMOKING PIPE MOUNTER [facility] Evaluation note Note Date & Type Note Facility Evaluation note No assessment information availa ble [facility] Work Phone: Evaluation note Note Date & Type Note Facility Evaluation note Diagnosis Ear drainage, left- Primary documented in this encounter [facility] Reason for referral (narrative) Note Date & Type Note Facility Reason for referral (narrative) No reason for referral information available [facility] Work Phone: Instructions Instruction Description Start Date CompletedPlease follow-up wi th Primary Care Physician or Package Sealer for treatment or adjustment of medication regarding [...] section and content) DATE CREATED AUTHOR 04/28/2021 [facility] DATE CREATED AUTHOR AUTHOR'S ORGANIZ ATION 05/07/2023 [facility] DATE CREATED AUTHOR AUTHOR'S ORGANIZ ATION 07/12/2025 [facility] Goals (unrecognized section and content) Goals may be documented in a n alternate sectionGoals may be documented in an alternate section Source Comments (unrecognize d section and content) In the event this informatio n is protected by the Federal Confidentiality of Alcohol and Drug Abuse Patient Records regulations: The Federal rules restrict any use of the information to criminally investigate or prosecute any alcohol or drug abuse patient.[facility] Reason for Visit (unrecogniz ed section and content) Reason Comments Ear Problem Left ear swollen, re d, painful, itchy, drainage Care Teams (unrecognized sec tion and content) [employer] Operator Relationship Specialty Start Date End Date Mariluz Coronado [address] [place] [address] PCP - General Family Medicine 04/12/23 Team Status: Active Member Role/Relationship Status Dates Dr. John Lewis MD Primary Care Provider Active Team Status: Inactive Member Role/Relationship Status Dates Dr. John Lewis MD Primary Care Provider Active Start: June 26, 2025 End: June 26, 2025 Dr. John Lewis MD Attending Provider Active Start: June 26, 2025 End: June 26, 2025 Dr. John Lewis MD Referring Provider Active Start: June 26, 2025 End: June 26, 2025 FOR RECORDS PERTAINING TO PATIENTS WHO ARE [...] BE BASED ON THE PRIMARY CLINICAL RECORDS. [facility]. provides no warranty or guarantee of the accuracy or completeness of information in this document.
== END | disposition home or self-care (01) ==
LOC: OPBI 07:28
PROVIDERS: PCP Family Medicine; Referring Provider Family Medicine; Visit Provider Family Medicine
DX: Z12.31 Encounter for screening mammogram for malignant neoplasm of breast (principal); Z80.3 Family history of malignant neoplasm of breast
CPT/HCPCS: 77063; 77067